=== PATIENT | male | born 1950 | race Caucasian/White ===

== ENCOUNTER → 2016-04-20 | Outpatient (CLI) | payer MEDICARE, OTHER ==
[~2016-04-20] MED LIST: ACETAMINOPHEN PO; ACTOS PO; AMARYL PO; COLESTID PO; COZAAR25 MG PO; DOXYCYCLINE HYC50 M1 PO; HYDROCODONE-A1 UDTA2 PO; LEVEMIR SUBQ; LIPITOR PO; LOMOTIL TABLET1 TAB PO; LOTREL 5/10 MG1 CAP PO; NAPROXEN PO; NIACIN500 M1 PO; NOVOLOG100 U/ML; PIOGLITAZONE45 MG PO; PREDNISONE PO; PROTONIX PO; PYRIDIUM PO; TETRACYCLINE PO; TYLOX 5/500 CAP1 CAP PO; VICODIN 5/1 TAB 5/50 PO; VICODIN 5/500 T1 TAB PO; VITAMIN B122500 MC1 PO; ZYLOPRIM PO
--- NOTE | ~2016-04-20 | US77 ---
[facility] A Service of [facility] & [facility] RADIOLOGY TEXT RESULTS PATIENT: JEREMIAH GODFREY LOCATION: [facility] : 46 UNIT #: [id number] AGE: [address]: Sin Jordan MD SEX: M ORDER DR: [id number] [facility] [address] [place], [place] [address] [id number] O MR#: [id number] Acc #: [id number] NAME: JEREMIAH GODFREY. : 1950 SEX: M STUDY DATE/TIME: 04/20/2016 13:30 UNIT: [facility] ROOM: STUDY DESCRIPTION: US Kidney Bilateral Complete Attending Physician: Sin Jordan M.D. Referring Physician: Sin Jordan M.D. Ordering Physician: Sin Jordan M.D. Primary Care Physician: Ginny Alberto M.D. MEDICAL IMAGING REPORT This report is preliminary unless electronic signature is present EXAM Bilateral renal ultrasound, 04/20/2016 INDICATIONS Ureteral calculus in a 66-year-old male. Abdominal pain for multiple months. History of bilateral renal stones with a lithotripsy performed about 2 weeks ago. Stents present and removed. Nonfunctioning kidney according to the patient. Left renal stone. TECHNIQUE Sonographic imaging of the kidneys was performed bilaterally. Correlation is made with CT abdomen and pelvis 03/05/2016 FINDINGS The left kidney measures 14.8 x 5.7 x 7.5 cm and the left kidney measures 9.3 x 4.0 x 4.3 cm. There is compensatory hypertrophy of the right kidney given significant atrophy and cortical thinning of the left kidney. Imaging findings on the left suggest sequela of prior ischemic or inflammatory insult. There is an aggregation of stone material in the lower pole left kidney measuring up to 1.7 cm, this measured up to at least [address] Suggestion of nonobstructing stones in the lower pole right kidney. There is some pelvocaliectasis or mild hydronephrotic chronic change of the left kidney. No distinct hydronephrosis on the right. The bladder is unremarkable. A ureteral jet on the right is present. IMPRESSION 1. Marked atrophy of the left kidney and compensatory hypertrophy of the right kidney. This suggests sequela of prior ischemic or inflammatory insult to the left kidney. 2. There is some pelvocaliectasis or mild hydronephrotic change of the left kidney. No hydronephrosis on the right. 3. Probable nonobstructing stones in the lower pole region right kidney. [facility]. [facility] A Service of [facility] / [facility] RADIOLOGY TEXT RESULTS PATIENT: JEREMIAH GODFREY LOCATION: [facility] #: [id number] : 46 UNIT #: [id number] AGE: [address]: Sin Jordan MD SEX: M ORDER DR: Aggregation of stone material in the lower pole left kidney as described. 4. Bladder unremarkable. Dictated by... Pritesh Gonzalez M.D. THIS IS AN ELECTRONICALLY VERIFIED REPORT Pritesh Gonzalez M.D. at 04/21/2016 11:20 AM ANGELA/stephanie TD: 04/21/2016 00:31 JOB #: [id number] MEDICAL IMAGING REPORT COPY
== END | disposition home or self-care (01) ==
LOC: CGUS 12:53
DX: N20.1 Calculus of ureter (principal); N26.1 Atrophy of kidney (terminal); N28.81 Hypertrophy of kidney; N20.0 Calculus of kidney
CPT/HCPCS: 76770